=== PATIENT | female | born 1965 | race Caucasian/White ===

== ENCOUNTER 2020-12-14 19:53 | Emergency (ER) | payer MEDICAID ==
[~2020-12-14] VITALS: Ht 172.7 cm; Wt 60.9 kg
--- NOTE | 2020-12-14 20:28 | NUR ---
PT STATES HAVING WORSENING RASH OVER THE LAST 5 WEEKS. STATES SHE HAS BEEN STRESSED. RASH IS WORSE ON CHEST, AND BACK, DRY AND ITCHY. WARM BLANKET GIVEN, PILLOW GIVEN, NEEDS MET, PT WITH NO REQUESTS AT THIS TIME.
[2020-12-14] MEDS ORDERED: TRIAMCINOLONE ACETONIDE 40 MG/ML, 1ML IM ONE (21:14)
[2020-12-14] MEDS ORDERED: TRIAMCINOLONE CRM 0.1%, 15GM TP ONE (21:25)
[2020-12-14 22:36] VITALS: BP 108/74
--- NOTE | 2020-12-14 22:36 | NUR ---
Pt dc'd to home with written and verbal instructions. Pt states understanding. Pt ambulatory out of ED without difficulty. Pt instructed to f/u with pcp
== END 2020-12-14 22:38 | disposition home or self-care (01) ==
LOC: ED 21:40
DX: L20.84 Intrinsic (allergic) eczema (principal)
CPT/HCPCS: 96372; 99283; J3301